=== PATIENT | male | born 1970 | race Caucasian/White ===

== ENCOUNTER 2018-04-11 07:52 | Day surgery (SDC) | payer OTHER ==
[~2018-04-11] VITALS: Ht 182.9 cm; Wt 111.4 kg
[2018-04-11] VITALS (11 sets, daily range): BP systolic 116–168; BP diastolic 52–84; PULSE 48–79; TEMP 97.8
[2018-04-11 08:51] LABS: HEMATOCRIT 47.5 % (42.0-52.0); HEMOGLOBIN 15.7 g/dl (13.5-18.0); MEAN CELL VOLUME 89 fl (80.0-100.0); MEAN CORPUSCULAR HEMOGLOBIN 30 pg (27.0-31.0); MEAN CORPUSCULAR HGB CONC 33 g/dl (33.0-37.0); MEAN PLATELET VOLUME 10.2 fl (7.4-10.4); PLATELET COUNT 195 K/mm3 (130-400); RED BLOOD COUNT 5.32 M/mm3 (4.20-5.60); REDCELL DISTRIBUTION WIDTH-CV 13.2 % (11.5-14.5)
[2018-04-11 08:57] LABS: PROTHROMBIN TIME 11.6 SECONDS (9.7-12.8)
[2018-04-11] MEDS ORDERED: ASPI325T6 PO (09:04)
[2018-04-11] MEDS ORDERED: TOPROL XL 25MG25 MG PO (09:06)
[2018-04-11] MEDS ORDERED: ASPIRIN E.C. 8181 MG PO (09:06)
[2018-04-11] MEDS ORDERED: LIPITOR 40MG TA40 MG PO (09:07)
[2018-04-11] MEDS ORDERED: NITROSTAT0.4 MG/TAB SL (09:07)
[2018-04-11] MEDS ORDERED: MASON NATURAL1000 M1 PO (09:08)
[2018-04-11] MEDS ORDERED: ZESTRIL 20MG TA20 MG PO (09:08)
[2018-04-11] MEDS ORDERED: MASON NATURAL2000 IU PO (09:09)
[2018-04-11 09:36] LABS: CALCIUM 9.4 mg/dL (8.4-10.2); CREATININE, serum 1.01 mg/dL (0.66-1.25); POTASSIUM 4.2 mmol/L (3.4-5.0)
== END 2018-04-11 15:31 | disposition home or self-care (01) ==
LOC: COL.CAR 07:52
PROVIDERS: Internal Medicine Cardiovascular Disease
DX: R94.39 Abnormal result of other cardiovascular function study (principal); R07.9 Chest pain, unspecified; E78.2 Mixed hyperlipidemia; I10 Essential (primary) hypertension; Z82.49 Family history of ischemic heart disease and other diseases of the circulatory system; Z79.899 Other long term (current) drug therapy
CPT/HCPCS: C1760; C1894; J1644; J2250; J3010; Q9967

== ENCOUNTER → 2023-12-27 | Outpatient (CLI) | payer OTHER ==
[~2023-12-27] MED LIST: ASPI325T6 PO; ASPIRIN E.C. 8181 MG PO; Gadoterate 20 ML VIAL IV ONE; LIPITOR 40MG TA40 MG PO; MASON NATURAL1000 M1 PO; MASON NATURAL2000 IU PO; NITROSTAT0.4 MG/TAB SL; TOPROL XL 25MG25 MG PO; ZESTRIL 20MG TA20 MG PO
== END ==
LOC: COL.RAD 08:56
DX: R97.20 Elevated prostate specific antigen [PSA] (principal)
CPT/HCPCS: A9575